=== PATIENT | female | born 1995 | race Two or more races ===

== ENCOUNTER 2018-02-20 11:22 | Emergency (ER) | payer BC ==
[~2018-02-20] VITALS: Ht 157.5 cm; Wt 72.6 kg
[2018-02-20] MEDS ORDERED: IBUPROFEN 800 MG TABLET ONE (11:58)
[2018-02-20] MEDS ORDERED: IBUPROFEN 800 MG TABLET PO ONE (12:00)
--- NOTE | 2018-02-20 13:25 | NUR ---
Patient discharged to home in stable conditon with family. Written and verbal after care instructions given. Patient verbalizes understanding of instructions.
== END 2018-02-20 13:26 | disposition home or self-care (01) ==
LOC: ER 11:22
DX: S29.011A Strain of muscle and tendon of front wall of thorax, initial encounter (principal); Z88.1 Allergy status to other antibiotic agents; X58.XXXA Exposure to other specified factors, initial encounter; Y93.89 Activity, other specified; Y92.89 Other specified places as the place of occurrence of the external cause; Y99.8 Other external cause status
CPT/HCPCS: 71045; 93005; A4663